=== PATIENT | male | born 1975 | race American Indian/Alaskan Native ===

== ENCOUNTER 2016-10-03 14:14 | Emergency (ER) | payer OTHER ==
[2016-10-03 14:35] VITALS: BP 117/75
--- NOTE | 2016-10-03 15:16 | Emergency Department Report ---
ED General Adult HPI - General Chief complaint: Pain General Stated complaint: LT SIDE BODY PAIN/NECK PAIN Time Seen by Provider: 10/03/16 14:44 Source: patient, family Mode of arrival: Ambulatory Limitations: No Limitations - History of Present Illness -: Gradual, days(s) (3) Location: neck, left, upper extremity, lower extremity Radiation: non-radiation Severity scale (0 -10): 5 Quality: burning, sharp Consistency: intermittent Improves with: none Worsens with: movement, other (work) Associated Symptoms: denies other symptoms, other (states l neck and arm hurt but then adds his lle is the same. 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 no cp. no sob. no n/v/d. no diaphoresis.). denies: confusion, chest pain, cough, diaphoresis, fever/chills , headaches, loss of appetite, malaise, nausea/vomiting, rash, seizure, shortness of breath, syncope, weakness Treatments Prior to Arrival: NSAID - Related Data Previous Rx's Medication Instructions Recorded Last Taken Type Cyclobenzaprine [Flexeril] 10 mg PO TID PRN #10 tablet 10/03/16 Unknown Rx Naproxen Sodium [Aleve TAB] 220 mg PO Q8H PRN #12 tablet 10/03/16 Unknown Rx Allergies Allergy/AdvReac Type Severity Reaction Status Date / Time Penicillins Allergy Unknown Verified 10/03/16 14:32 ED Review of Systems ROS: Stated complaint: LT SIDE BODY PAIN/NECK PAIN Other details as noted in HPI Comment: All other systems reviewed and negative Constitutional: no symptoms reported, see HPI. denies: chills, diaphoresis, fever, malaise Eyes: as per HPI. denies: eye pain ENT: as per HPI. denies: ear pain, throat pain Respiratory: no symptoms reported, see HPI. denies: cough, orthopnea Cardiovascular: as per HPI. denies: chest pain, palpitations, dyspnea on exertion, orthopnea, edema, syncope, paroxysmal nocturnal dyspnea Endocrine: no symptoms reported. denies: see HPI, excessive sweating, flushing , intolerance to cold, intolerance to heat Gastrointestinal: as per HPI. denies: abdominal pain, nausea, vomiting Genitourinary: as per HPI. denies: urgency, dysuria Musculoskeletal: as per HPI, other (l side pain. l neck pain). denies: back pain, joint swelling Skin: as per HPI. denies: rash, lesions Neurological: as per HPI, paresthesias (sharp pain rue and rle). denies: headache, weakness, numbness, confusion, abnormal gait, vertigo Psychiatric: as per HPI. denies: anxiety, depression Hematological/Lymphatic: as per HPI. denies: easy bleeding, easy bruising, swollen glands ED Past Medical Hx - Past Medical History Previous Medical History?: No - Surgical History Past Surgical History?: No - Family History Family history: no significant (dad dec trauma complication; mom a/w) - Social History Smoking Status: Current Every Day Smoker Substance Use Type: Alcohol, Non Opiate Pain, Other (thc) - Medications Home Medications: Home Medications Medication Instructions Recorded Confirmed Last Taken Type Cyclobenzaprine [Flexeril] 10 mg PO TID PRN #10 tablet 10/03/16 Unknown Rx Naproxen Sodium [Aleve TAB] 220 mg PO Q8H PRN #12 tablet 10/03/16 Unknown Rx ED Physical Exam - General Limitations: No Limitations General appearance: alert, in no apparent distress - Head Head exam: Present: atraumatic - Eye Eye exam: Present: normal appearance - ENT ENT exam: Present: mucous membranes moist - Neck Neck exam: Present: normal inspection. Absent: tenderness, meningismus - Respiratory Respiratory exam: Present: normal lung sounds bilaterally. Absent: respiratory distress, wheezes, rales, rhonchi, stridor, chest wall tenderness, accessory muscle use, decreased breath sounds, prolonged expiratory - Cardiovascular Cardiovascular Exam: Present: regular rate, normal rhythm, normal heart sounds - GI/Abdominal GI/Abdominal exam: Present: soft. Absent: distended, tenderness, guarding - Rectal Rectal exam: Present: deferred - Extremities Exam Extremities exam: Present: normal inspection, full ROM, normal capillary refill. Absent: tenderness, pedal edema, joint swelling, calf tenderness - Back Exam Back exam: Present: normal inspection, full ROM, muscle spasm (l trap). Absent : tenderness, CVA tenderness (R), CVA tenderness (L), paraspinal tenderness, vertebral tenderness - Neurological Exam Neurological exam: Present: alert, altered, oriented X3, CN II-XII intact, normal gait, reflexes normal. Absent: abnormal gait, motor sensory deficit - Expanded Neurological Exam Expanded Patient oriented to: Present: person, place, time Speech: Present: fluid speech Cranial nerves: EOM's Intact: Normal, Gag Reflex: Normal, Tongue Deviation: Normal, Nystagmus: Normal, Facial Sensation: Normal Upper motor neuron: Pronator Drift: Normal Motor strength exam: RUE: 5, LUE: 5, RLE: 5, LLE: 5 Best Eye Response (Darnell): (4) open spontaneously Best Motor Response (Darnell): (6) obeys commands Best Verbal Response (Darnell): (5) oriented Darnell Total: 15 - Psychiatric Psychiatric exam: Present: normal affect, normal mood. Absent: depressed, agitated - Skin Skin exam: Present: warm, dry, intact, normal color. Absent: rash, cyanosis, diaphoretic, erythema, urticaria, vesicles, petechiae, pallor, abrasion, ecchymosis ED Course Vital Signs 10/03/16 14:32 Temperature 98.3 F Pulse Rate 66 Respiratory 18 Rate Blood Pressure 117/75 O2 Sat by Pulse 100 Oximetry - Reevaluation(s) Reevaluation #1: 10/03/16 [address] no fever no cp. no sob. no sign fam hx co neck and la pain. he says pain is sharp and burning the lle too is burning no fall no trauma does work states pain worse w movement and appears to be worse when in room ambulatory neuro intact no pronator drift perrl 12 lead nap labs sent ua sent Reevaluation #2: 10/03/16 16:06 now at the bedside and states he just works too much pt asking for pain meds 10/03/16 16:28 labs noted medicated dc home w dc poc and out pt referral ED Medical Decision Making - Lab Data Result diagrams: 10/03/16 14:56 10/03/16 14:56 - EKG Data -: EKG Interpreted by Me EKG shows normal: sinus rhythm - EKG Data Interpretation: no acute changes - Medical Decision Making ck neg trop and 12 lead wnl labs noted pain worse w movement no neuro def. - Differential Diagnosis ro rhabdo; ro atypical acs w trop and 12 lead; mskl pain Critical care attestation.: If time is entered above; I have spent that time in minutes in the direct care of this critically ill patient, excluding procedure time. ED Disposition Clinical Impression: Musculoskeletal pain Disposition: DC-01 TO HOME OR SELFCARE Is pt being admited?: No Does the pt Need Aspirin: No Condition: Stable Instructions: Musculoskeletal Pain (ED) Additional Instructions: rest drink plenty of water when working med as ordered today if persists see PCP- referral today Referrals: PRIMARY CARE, [Primary Care Provider] - 3-5 Days HUGO MARTINEZ MD, PHD [Staff Physician] - 3-5 Days Forms: Work/School Release Form(ED)
[2016-10-03 15:17] LABS: Urine Drugs of Abuse Note Disclamer
[2016-10-03 15:30] LABS: Bilirubin,Urine NEG (Negative); Blood,Urine NEG (Negative); Ketones,Urine NEG (Negative); Leukocyte Esterase,Urine NEG (Negative); Mucus,Urine FEW /HPF; Nitrite,Urine NEG (Negative); Protein,Urine <15 mg/dL mg/dL (Negative); Urobilinogen,Urine < 2.0 mg/dL (<2.0); WBC,Urine < 1.0 /HPF (0.0-6.0)
[2016-10-03 15:31] LABS: Basophils % (Auto) 0.9 % (0.0-1.8); Eosinophils % (Auto) 0.6 % (0.0-4.3); Hematocrit 42.6 % (35.5-45.6); Hemoglobin 13.8 gm/dl (11.8-15.2); Mean Corpuscular HGB Conc 33 % (32-34); Mean Corpuscular Hemoglobin 27 pg (28-32); Mean Corpuscular Volume 84 fl (84-94); Platelet Count 273 K/mm3 (140-440); Red Blood Count 5.04 M/mm3 (3.65-5.03); Red Cell Distribution Width 14.7 % (13.2-15.2); White Blood Count 8.9 K/mm3 (4.5-11.0)
[2016-10-03 15:45] LABS: Alanine Aminotransferase 16 units/L (7-56); Albumin 4.5 g/dL (3.9-5); Albumin/Globulin Ratio 1.6 %; Alkaline Phosphatase 50 units/L (35-129); Anion Gap 19 mmol/L; BUN/Creatinine Ratio 14.44; Blood Urea Nitrogen 13 mg/dL (9-20); Calcium 9.6 mg/dL (8.4-10.2); Carbon Dioxide 27 mmol/L (22-30); Creatine Kinase 112 units/L (55-170); Glucose 81 mg/dL (75-100); Potassium 4.9 mmol/L (3.6-5.0); Sodium 144 mmol/L (137-145); Total Protein 7.4 g/dL (6.3-8.2)
[2016-10-03] MEDS ORDERED: FLEXERIL PO ONE (16:14)
[2016-10-03] MEDS ORDERED: ULTRAM PO ONE (16:14)
== END 2016-10-03 16:37 | disposition home or self-care (01) ==
LOC: ED 14:14
DX: M79.1 Myalgia (principal); F17.200 Nicotine dependence, unspecified, uncomplicated
CPT/HCPCS: 36415; 80053; 80307; 81001; 82550; 84484; 85025; 93005; 93010; 99283

== ENCOUNTER 2018-07-17 07:16 | Emergency (ER) | payer BC, OTHER ==
[2018-07-17 07:25] VITALS: BP 132/86
[2018-07-17 08:01] LABS: Basophils # (Auto) 0.1 K/mm3 (0.0-0.1); Basophils % (Auto) 0.8 % (0.0-1.8); Eosinophils % (Auto) 0.5 % (0.0-4.3); Hematocrit 40.9 % (35.5-45.6); Hemoglobin 13.8 gm/dl (11.8-15.2); Lymphocytes # (Auto) 2.3 K/mm3 (1.2-5.4); Lymphocytes % (Auto) 26.8 % (13.4-35.0); Mean Corpuscular HGB Conc 34 % (32-34); Mean Corpuscular Volume 86 fl (84-94); Monocytes # (Auto) 0.7 K/mm3 (0.0-0.8); Monocytes % (Auto) 8.1 % (0.0-7.3); Platelet Count 245 K/mm3 (140-440); Red Blood Count 4.76 M/mm3 (3.65-5.03); Red Cell Distribution Width 14.9 % (13.2-15.2)
[2018-07-17 08:22] LABS: Alanine Aminotransferase 12 units/L (7-56); Albumin 4.1 g/dL (3.9-5); BUN/Creatinine Ratio 13; Blood Urea Nitrogen 10 mg/dL (9-20); Calcium 8.8 mg/dL (8.4-10.2); Hemolysis Index 14
[2018-07-17 08:24] LABS: Bilirubin,Direct < 0.2 mg/dL (0-0.2)
[2018-07-17] MEDS ORDERED: ZOFRAN IV ONE (08:34)
[2018-07-17] MEDS ORDERED: NACL 0.9% 1000 ML 1,000 ML IV ONE (08:34)
[2018-07-17] MEDS ORDERED: MORPHINE IV ONE (08:34)
--- NOTE | 2018-07-17 08:49 | Emergency Department Report ---
ED Abdominal Pain HPI - General Chief Complaint: Abdominal Pain Stated Complaint: RT SIDE/BACK PAIN Time Seen by Provider: 07/17/18 07:45 Source: patient Mode of arrival: Ambulatory Limitations: No Limitations - History of Present Illness Initial Comments: This is a 42-year-old male nontoxic, well nourished in appearance, no acute signs of distress presents to the ED with c/o of right flank pain 1 month. Patient denies any nausea or vomiting. Patient describes flank pain as cramping and aching with level of 3/10. Patient denies chest pain, short of breath, fever, chills, headache, stiff neck, numbness or tingling. Patient denies any diarrhea or constipation. Patient denies any recent travels. Patient stated allergies to PCN. MD Complaint: flank pain -: month(s) (1) Location: L flank Radiation: none Migration to: no migration Severity: mild Severity scale (0 -10): 3 Quality: cramping, aching Consistency: intermittent Improves With: nothing Worsens With: nothing Associated Symptoms: denies other symptoms. denies: nausea, vomiting, diarrhea, fever, chills, constipation, dysuria, hematemesis, hematochezia, melena, hematuria, anorexia, syncope - Related Data Previous Rx's Medication Instructions Recorded Last Taken Type Cyclobenzaprine [Flexeril] 10 mg PO TID PRN #10 tablet 10/03/16 Unknown Rx Naproxen Sodium [Aleve TAB] 220 mg PO Q8H PRN #12 tablet 10/03/16 Unknown Rx Ibuprofen [Motrin] 600 mg PO Q8H PRN #20 tablet 07/17/18 Unknown Rx Allergies Allergy/AdvReac Type Severity Reaction Status Date / Time Penicillins Allergy Unknown Verified 07/17/18 07:18 ED Review of Systems ROS: Stated complaint: RT SIDE/BACK PAIN Other details as noted in HPI Constitutional: denies: chills, fever Eyes: denies: eye pain, eye discharge, vision change ENT: denies: ear pain, throat pain Respiratory: denies: cough, shortness of breath, wheezing Cardiovascular: denies: chest pain, palpitations Endocrine: no symptoms reported Gastrointestinal: other (left flank pain). denies: abdominal pain, nausea, diarrhea Genitourinary: denies: urgency, dysuria Musculoskeletal: denies: back pain, joint swelling, arthralgia Skin: denies: rash, lesions Neurological: denies: headache, weakness, paresthesias Psychiatric: denies: anxiety, depression Hematological/Lymphatic: denies: easy bleeding, easy bruising ED Past Medical Hx - Past Medical History Previous Medical History?: No - Surgical History Past Surgical History?: No - Social History Smoking Status: Current Every Day Smoker Substance Use Type: Alcohol - Medications Home Medications: Home Medications Medication Instructions Recorded Confirmed Last Taken Type Cyclobenzaprine [Flexeril] 10 mg PO TID PRN #10 tablet 10/03/16 Unknown Rx Naproxen Sodium [Aleve TAB] 220 mg PO Q8H PRN #12 tablet 10/03/16 Unknown Rx Ibuprofen [Motrin] 600 mg PO Q8H PRN #20 tablet 07/17/18 Unknown Rx ED Physical Exam - General Limitations: No Limitations General appearance: alert, in no apparent distress - Head Head exam: Present: atraumatic, normocephalic - Eye Eye exam: Present: normal appearance - Neck Neck exam: Present: normal inspection, full ROM. Absent: tenderness, meningismus, lymphadenopathy - Respiratory Respiratory exam: Present: normal lung sounds bilaterally. Absent: respiratory distress, wheezes, rales, rhonchi, stridor, chest wall tenderness, accessory muscle use, decreased breath sounds, prolonged expiratory - Cardiovascular Cardiovascular Exam: Present: regular rate, normal rhythm, normal heart sounds. Absent: bradycardia, tachycardia, irregular rhythm, systolic murmur, diastolic murmur, rubs, gallop - GI/Abdominal GI/Abdominal exam: Present: soft, normal bowel sounds. Absent: distended, tenderness, guarding, rebound, rigid, diminished bowel sounds - Rectal Rectal exam: Present: deferred - Extremities Exam Extremities exam: Present: normal inspection, full ROM, normal capillary refill - Back Exam Back exam: Present: normal inspection, full ROM. Absent: tenderness, CVA tenderness (R), CVA tenderness (L), muscle spasm, paraspinal tenderness, vertebral tenderness, rash noted - Neurological Exam Neurological exam: Present: alert, oriented X3 - Psychiatric Psychiatric exam: Present: normal affect, normal mood - Skin Skin exam: Present: warm, dry, intact, normal color. Absent: rash ED Course Vital Signs 07/17/18 07:23 Temperature 98.1 F Pulse Rate 89 Respiratory 16 Rate Blood Pressure 132/86 O2 Sat by Pulse 100 Oximetry - Reevaluation(s) Reevaluation #1: 07/17/18 08:47 Patient is speaking in full sentences with no signs of distress noted. ED Medical Decision Making - Lab Data Result diagrams: 07/17/18 07:53 07/17/18 07:53 - Medical Decision Making This is a 42-year-old male that presents with flank pain. Patient is stable and was examined by me. There is no abdominal tenderness. Negative signs of symp toms of appendicitis. Labs obtained. UA obtained. CT of abdomen obtained and dictated by the radiologist. Patient is notified of the report with no questions noted by the patient. Vital signs are stable prior to discharge. Patient received medical treatment in the ED which patient stated symptoms has resovled and subsided. Was instructed note to operate any machinery due to possible drowsiness and stated someone will drive the patient home. A by mouth challenge has been obtained and patient tolerated well with no nausea vomiting. Patient was notified of strict precatuions of appendictis symptoms and to return to the ED if symptoms occurs as soon as possible. Patient was also instructed to Follow-up with a primary care doctor in 3-5 days or if symptoms worsen and continue return to emergency room as soon as possible. At time of discharge, the patient does not seem toxic or ill in appearance. No acute signs of distress noted. Patient agrees to discharge treatment plan of care. No further questions noted by the patient. Critical care attestation.: If time is entered above; I have spent that time in minutes in the direct care of this critically ill patient, excluding procedure time. ED Disposition Clinical Impression: Right flank pain Disposition: DC-01 TO HOME OR SELFCARE Is pt being admited?: No Does the pt Need Aspirin: No Condition: Stable Instructions: Flank Pain (ED) Additional Instructions: Follow-up with a primary care doctor in 3-5 days or if symptoms worsen and continue return to emergency room as soon as possible. Prescriptions: Ibuprofen [Motrin] 600 mg PO Q8H PRN #20 tablet PRN Reason: Pain Referrals: [facility] JADIEL [Primary Care Provider] - 3-5 Days PRIMARY MD VAZQUEZ [Referring] - 3-5 Days ANGIE SHAVER MD [Staff Physician] - 3-5 Days [facility] [Outside] - 3-5 Days [facility] [Outside] - 3-5 Days Forms: Work/School Release Form(ED)
[2018-07-17 08:56] LABS: Bilirubin,Urine NEG (Negative); Blood,Urine NEG (Negative); Color,Urine Yellow (Yellow); Mucus,Urine FEW /HPF; Protein,Urine <15 mg/dL mg/dL (Negative); Urobilinogen,Urine < 2.0 mg/dL (<2.0); WBC,Urine < 1.0 /HPF (0.0-6.0)
--- NOTE | 2018-07-17 11:18 | Cat Scan Report ---
PROCEDURE: CT ABDOMEN PELVIS WO CON TECHNIQUE: Noncontrast CT of the abdomen and pelvis was performed. Axial images and coronal and sagit penelope reformatted images were obtained. HISTORY: right flank pain COMPARISON: None FINDINGS: Within the limitations of a noncontrast exam, the visualized liver, spleen, pancreas, adrenal glands and kidneys demonstrate no significant abnormality. There is no nephrolithiasis, hydronephrosis or other evidence for acute obstructive uropathy. There are aortoiliac atherosclerotic calcifications. There is no abdominal aortic aneurysm. There is no evidence for intestinal obstruction. The appendix is normal. There is no abnormal fluid collection seen. There is no free intraperitoneal air. Bladder is unremarkable. There is no abnormal pelvic fluid collection or mass seen. IMPRESSION: There is no nephrolithiasis, hydronephrosis or other evidence for acute obstructive uropathy. There is no significant abnormality identified. This document is electronically signed by Lise Echavarria MD., July 17 2018 11:15:43 AM ET
== END 2018-07-17 11:36 | disposition home or self-care (01) ==
LOC: ED 07:16
DX: R10.9 Unspecified abdominal pain (principal); F17.200 Nicotine dependence, unspecified, uncomplicated; Z88.0 Allergy status to penicillin
CPT/HCPCS: 36415; 74176; 80048; 80076; 81001; 83690; 85025; 96374; 96375; 99284; J2270; J2405; J7030; 96361